=== PATIENT | male | born 1965 | race African-American/Black ===

== ENCOUNTER 2018-09-02 15:51 | Emergency (ER) | payer SELFPAY ==
[~2018-09-02] VITALS: Ht 177.8 cm; Wt 100.0 kg
[2018-09-02] MEDS ORDERED: IBUPROFEN 600MG TABLET PO ONE (20:00)
[2018-09-02 21:10] VITALS: BP 189/112
== END 2018-09-02 21:10 | disposition home or self-care (01) ==
LOC: ER 15:51
DX: M25.562 Pain in left knee (principal); Z91.14 Patient's other noncompliance with medication regimen; I10 Essential (primary) hypertension; H40.9 Unspecified glaucoma; Z98.890 Other specified postprocedural states
CPT/HCPCS: 73562; 99283

== ENCOUNTER 2019-01-22 16:04 | Emergency (ER) | payer OTHER ==
[~2019-01-22] VITALS: Ht 180.3 cm; Wt 95.0 kg
[2019-01-22] MEDS ORDERED: FLUORESCEIN SODIUM 1MG/STRIP OP ONE (18:15)
[2019-01-22] MEDS ORDERED: TETRACAINE 0.5% OPHTH DROPS 4ML OP ONE (18:15)
[2019-01-22] MEDS ORDERED: BALANCED SALT IRRIG SOLN 15ML IO ONE (19:15)
[2019-01-22 20:27] VITALS: BP 165/80
== END 2019-01-22 20:27 | disposition home or self-care (01) ==
LOC: ER 16:04
DX: S05.11XA Contusion of eyeball and orbital tissues, right eye, initial encounter (principal); H10.9 Unspecified conjunctivitis; Y93.67 Activity, basketball; Y92.89 Other specified places as the place of occurrence of the external cause; I10 Essential (primary) hypertension; H40.9 Unspecified glaucoma; Z91.14 Patient's other noncompliance with medication regimen
CPT/HCPCS: 99283